=== PATIENT | female | born 1985 | race African-American/Black ===

== ENCOUNTER → 2017-02-03 | Outpatient (CLI) | payer SELFPAY ==
--- NOTE | 2017-02-04 10:18 | US ---
Examination: Greater than 14 weeks transabdominal ultrasound with color Doppler and M-mode evaluatio n. HISTORY: Anatomy screening FINDINGS: LMP is 09/29/2016 EVALUATION: Posterior placenta with a cephalic lie and grade 1. Visually amniotic fluid is wit hin normal limits. Three-vessel cord is seen. Ventricles are within normal limits. Nuchal fold thickness is 2 mm. Four chamber heart is noted. Heart rate is 136 beats per minute. BIOMETRY AND GESTATIONAL AGE: Biparietal diameter 4.3 cm. The abdominal circumference measures 13.6 cm. The femoral length is 3 cm with head circumference of 15.4 cm. Gestational age is 19 weeks and 0 days. The expected date of de livery is approximately 06/30/2017. Fetus weight is 270 grams. Overall the fetus is within the 92nd percentile. Other detail anatomy summarized into PACs sheet after the images. No anatomical anomalies. No echogenic cardiac focus or echogenic bowel. No VSD identified. IMPRESSION: Single active IU with cephalic fetus. Posterior placenta with grade 1, no placenta previa. No anomalies are seen. Amniotic fluid appears within normal limits.
== END ==
LOC: MW.US 14:29
PROVIDERS: ATTEND Obstetrics & Gynecology
DX: Z36 Encounter for antenatal screening of mother (principal); Z3A.19 19 weeks gestation of pregnancy
CPT/HCPCS: 76805; 76805-26; 87491; 87591; G0145

== ENCOUNTER 2018-05-03 10:13 | Emergency (ER) | payer SELFPAY ==
--- NOTE | 2018-05-03 10:23 | EDM.PDOC ---
ED HPI GENERAL MEDICAL PROBLEM - General Stated Complaint: PT SOPKE TO NURSE Time Seen by Provider: 05/03/18 10:18 Source of Information: Reports: Patient History Limitations: Reports: No Limitations - History of Present Illness INITIAL COMMENTS - FREE TEXT/NARRATIVE: HISTORY AND PHYSICAL: History of present illness: Patient is a 32-year-old female who presents to the emergency room with complaints of low back pain, dysuria and urinary frequency 2 days. She states she is concerned she has a UTI and possibly an STD. She reports she was informed she was exposed to gonorrhea/chlamydia from a partner. She denies any vaginal itching, discharge or lesions. She denies any fever, chills, chest pain , shortness of breath. Denies any abdominal pain, nausea, vomiting, diarrhea or constipation. Last menstrual period Review of systems: As per history of present illness and below otherwise all systems reviewed and negative. Past medical history: As per history of present illness and as reviewed below otherwise noncontributory. Surgical history: As per history of present illness and as reviewed below otherwise noncontributory. Social history: No reported history of drug or alcohol abuse. Family history: As per history of present illness and as reviewed below otherwise noncontributory. Physical exam: General: Well-developed and well-nourished 32-year-old female. Alert and oriented. Nontoxic appearing and in no acute distress. HEENT: Atraumatic, normocephalic, pupils equal and reactive bilaterally, negative for conjunctival pallor or scleral icterus, mucous membranes moist, throat clear, neck supple, nontender, trachea midline. No drooling or trismus noted. No meningeal signs Lungs: Clear to auscultation, breath sounds equal bilaterally, chest nontender. Heart: S1S2, regular rate and rhythm without overt murmur Abdomen: Soft, nondistended, nontender. Negative for masses or hepatosplenomegaly. Negative for costovertebral tenderness. Pelvis: Stable nontender. Genitourinary: Deferred. Rectal: Deferred. Skin: Intact, warm, dry. No lesions or rashes noted. Extremities: Atraumatic, negative for cords or calf pain. Neurovascular unremarkable. Neuro: Awake, alert, oriented. Cranial nerves II through XII unremarkable. Cerebellum unremarkable. Motor and sensory unremarkable throughout. Exam nonfocal. Notes: Will treat patient prophylactically with Rocephin and Zithromax. Patient education regarding STD exposure and prevention was completed. Patient has been unable to give us a urine sample and would like to be discharged to home. She states her main concern was the STD exposure and currently declines giving us a urine sample. Inform the patient to follow up with her primary care provider next week. She is agreeable and voices understanding and denies any further questions at this time. Diagnostics: UA, HCGU, Chlamydia/Gonorrhea Therapeutics: Rocephin IM, Zithromax PO Prescription: None Impression: STD exposure Plan: 1. Please abstain from sexual intercourse until the lab results have returned. Always use protection to minimized risk of STD exposure 2. The gonorrhea and chlamydia tests are send out labs, therefore will not be available for 2-3 business days. 3. Please follow-up with your primary care provider in the next 1-[address] [facility] does offer free STD testing, please follow-up with them for further STD testing needs. Return to the ED as needed and as discussed. Definitive disposition and diagnosis as appropriate pending reevaluation and review of above. Duration: Day(s): Location: Reports: Back, Pelvis Left Back Pain Score (Numeric/FACES): 5 - Related Data Allergies Allergy/AdvReac Type Severity Reaction Status Date / Time tioconazole Allergy Swelling Verified 05/03/18 10:28 [From Monistat 1 (tioconazole)] Home Meds: Home Meds Vits #93/Iron Fum/FA [ Formula Tablet] 1 each PO BID 05/03/18 [ History] Past Medical History - Past Health History Medical/Surgical History: Denies Medical/Surgical History HEENT History: Reports: None, Impaired Vision Other HEENT History: wears glasses/contacts Cardiovascular History: Reports: Heart Murmur Respiratory History: Reports: None Gastrointestinal History: Reports: None Genitourinary History: Reports: None 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 Musculoskeletal History: Reports: None Neurological History: Reports: None Psychiatric History: Reports: None Endocrine/Metabolic History: Reports: None Hematologic History: Reports: None Immunologic History: Reports: None Oncologic (Cancer) History: Reports: None Dermatologic History: Reports: None - Infectious Disease History Infectious Disease History: Reports: None - Past Surgical History Head Surgeries/Procedures: Reports: None HEENT Surgical History: Reports: None Cardiovascular Surgical History: Reports: None GI Surgical History: Reports: None Female Surgical History: Reports: None, D&C Neurological Surgical History: Reports: None Musculoskeletal Surgical History: Reports: None Oncologic Surgical History: Reports: None Dermatological Surgical History: Reports: None Social & Family History - Family History Family Medical History: Noncontributory - Caffeine Use Caffeine Use: Reports: None ED ROS GENERAL - Review of Systems Review Of Systems: ROS reveals no pertinent complaints other than HPI. ED EXAM, GENERAL - Physical Exam Exam: See Below (See dictation) Course - Vital Signs Last Recorded V/S: Last Vital Signs Temp 97.2 F 05/03/18 10:19 Pulse 77 05/03/18 10:19 Resp 16 05/03/18 10:19 BP 113/66 05/03/18 10:19 Pulse Ox 98 05/03/18 10:19 - Orders/Labs/Meds Orders: Active Orders 24 hr Category Date Time Status CHLAMYDIA AND GONORRHEA BY TMA Stat Lab 05/03/18 10:30 Ordered HCG QUALITATIVE,URINE [URCHEM] Stat Lab 05/03/18 10:18 Ordered UA W/MICROSCOPIC [URIN] Stat Lab 05/03/18 10:18 Ordered Meds: Medications Discontinued Medications Generic Name Dose Route Start Last Admin Trade Name Vaibhavq PRN Reason Stop Dose Admin Azithromycin 1,000 mg 05/03/18 10:31 05/03/18 11:11 Zithromax PO 05/03/18 10:32 1,000 mg NOW STA Administration Ceftriaxone Sodium 250 mg/ 0.9 mls @ 0.9 mls/sec 05/03/18 10:31 05/03/18 11: 11 Lidocaine HCl IM 05/03/18 10:32 0.9 mls/sec ONETIME ONE Administration Departure - Departure Time of Disposition: 10:36 Disposition: Home, Self-Care 01 Clinical Impression: STD exposure - Discharge Information Instructions: Sexually Transmitted Disease, [id number] Referrals: PCP,None [Primary Care Provider] - Additional Instructions: The following information is given to patients seen in the emergency department who are being discharged to home. This information is to outline your options for follow-up care. We provide all patients seen in our emergency department with a follow-up referral. The need for follow-up, as well as the timing and circumstances, are variable depending upon the specifics of your emergency department visit. If you don't have a primary care physician on staff, we will provide you with a referral. We always advise you to contact your personal physician following an emergency department visit to inform them of the circumstance of the visit and for follow-up with them and/or the need for any referrals to a consulting specialist. The emergency department will also refer you to a specialist when appropriate. This referral assures that you have the opportunity for follow-up care with a specialist. All of these measure are taken in an effort to provide you with optimal care, which includes your follow-up. Under all circumstances we always encourage you to contact your private physician who remains a resource for coordinating your care. When calling for follow-up care, please make the office aware that this follow-up is from your recent emergency room visit. If for any reason you are refused follow-up, please contact the [facility] Emergency Department at and asked to speak to the emergency department charge nurse. [facility] [address] [place] [id number] 1. Please abstain from sexual intercourse until the lab results have returned. Always use protection to minimized risk of STD exposure 2. The gonorrhea and chlamydia tests are send out labs, therefore will not be available for 2-3 business days. 3. Please follow-up with your primary care provider in the next 1-[address] [facility] does offer free STD testing, please follow-up with them for further STD testing needs. Return to the ED as needed and as discussed. - My Orders Last 24 Hours: My Active Orders 05/03/18 10:18 HCG QUALITATIVE,URINE [URCHEM] Stat UA W/MICROSCOPIC [URIN] Stat 05/03/18 10:30 CHLAMYDIA AND GONORRHEA BY TMA Stat - Assessment/Plan Last 24 Hours: My Active Orders 05/03/18 10:18 HCG QUALITATIVE,URINE [URCHEM] Stat UA W/MICROSCOPIC [URIN] Stat 05/03/18 10:30 CHLAMYDIA AND GONORRHEA BY TMA Stat
[2018-05-03] MEDS ORDERED: cefTRIAXone 250 MG in Lidocaine 1% 0.9 ML IM ONE (10:31)
[2018-05-03] MEDS ORDERED: Azithromycin 250 MG Tab PO STA (10:31)
[2018-05-03 17:08] VITALS: BP 112/52
== END 2018-05-03 11:24 | disposition home or self-care (01) ==
LOC: MW.ED 10:13
DX: Z20.2 Contact with and (suspected) exposure to infections with a predominantly sexual mode of transmission (principal); Z88.8 Allergy status to other drugs, medicaments and biological substances
CPT/HCPCS: 96372; 99283; A9270; J0696